=== PATIENT | male | born 1975 | race Caucasian/White ===

== ENCOUNTER 2018-05-05 02:44 | Emergency (ER) | payer BC ==
[~2018-05-05] VITALS: Ht 180.3 cm; Wt 160.6 kg
[2018-05-05 02:53] VITALS: Ht 180.3 cm; Wt 160.6 kg
[2018-05-05 05:36] VITALS: BP 142/92
== END 2018-05-05 05:36 | disposition home or self-care (01) ==
LOC: ED 02:44
DX: S16.1XXA Strain of muscle, fascia and tendon at neck level, initial encounter (principal); S93.401A Sprain of unspecified ligament of right ankle, initial encounter; I10 Essential (primary) hypertension; V59.9XXA Occupant (driver) (passenger) of pick-up truck or van injured in unspecified traffic accident, initial encounter; Y93.89 Activity, other specified; Y92.89 Other specified places as the place of occurrence of the external cause; Y99.8 Other external cause status

== ENCOUNTER 2018-05-06 23:43 | Emergency (ER) | payer BC ==
[~2018-05-06] VITALS: Ht 180.3 cm; Wt 160.6 kg
[2018-05-06 23:52] VITALS: Ht 180.3 cm; Wt 160.6 kg
[2018-05-07 01:28] VITALS: BP 132/102
== END 2018-05-07 01:28 | disposition home or self-care (01) ==
LOC: ED 23:43
DX: F07.81 Postconcussional syndrome (principal); I10 Essential (primary) hypertension; V89.2XXA Person injured in unspecified motor-vehicle accident, traffic, initial encounter; Y93.89 Activity, other specified; Y92.89 Other specified places as the place of occurrence of the external cause; Y99.8 Other external cause status